=== PATIENT | female | born 1950 ===

== ENCOUNTER 2017-11-21 08:32 | Emergency (ER) | payer MEDICARE, MEDICAID ==
[2017-11-21 08:51] VITALS: BP 119/74; PULSE 80; RESP 18; TEMP 98.4; O2SAT 98
--- NOTE | 2017-11-21 11:30 | RAD ---
PROCEDURE: Radiographs of the Left Shoulder HISTORY: r/o fx COMPARISON: None available. FINDINGS: BONES: No acute displaced fracture. The distal clavicle and underlying ribs appear intact. JOINTS: No acute dislocation. SOFT TISSUES: Soft tissues appear unremarkable. No evidence of radiopaque foreign body. IMPRESSION: No acute displaced fracture or dislocation evident. If high clinical index of suspicion for occult fracture, suggest cross-sectional imaging, otherwise, if symptoms persist or if there is continued clinical concern, x-ray follow-up in 7-10 days should be considered.
--- NOTE | 2017-11-21 12:07 | C.PDOC ---
History Of Present Illness 67 y/o female presents to the ER complaining of left shoulder pain which began yesterday. Patient reports that the pain is localized to his shoulder. Patient states that he does a lot of heavy lifting.Patient denies fall, trauma, SOB, chest pain, and fever. Time Seen by Provider: 11/21/17 09:08 Chief Complaint (Nursing): Upper Extremity Problem/Injury History Per: Patient History/Exam Limitations: no limitations Onset/Duration Of Symptoms: Days Current Symptoms Are (Timing): Still Present Severity: Moderate Past Medical History Reviewed: Historical Data, Nursing Documentation, Vital Signs Vital Signs: Last Vital Signs Temp 98.4 F 11/21/17 08:44 Pulse 80 11/21/17 08:44 Resp 18 11/21/17 08:44 BP 119/74 11/21/17 08:44 Pulse Ox 98 11/21/17 12:13 - Medical History PMH: HTN, Hypercholesterolemia, Hyperlipidemia, Rheumatoid Arthritis Denies: Chronic Kidney Disease Other Surgeries: Hx of surgeries Family History: States: No Known Family Hx - Social History Hx Tobacco Use: No Hx Alcohol Use: No Hx Substance Use: No - Immunization History Hx Tetanus Toxoid Vaccination: No Hx Influenza Vaccination: No Hx Pneumococcal Vaccination: No Review Of Systems Except As Marked, All Systems Reviewed And Found Negative. Constitutional: Negative for: Fever, Chills Cardiovascular: Negative for: Chest Pain Respiratory: Negative for: Shortness of Breath Musculoskeletal: Positive for: Shoulder Pain (left shoulder pain) Physical Exam - Physical Exam Appears: Non-toxic, No Acute Distress Skin: Normal Color, Warm Head: Atraumatic, Normacephalic Eye(s): bilateral: Normal Inspection Nose: Normal Oral Mucosa: Moist Neck: Supple Chest: Symmetrical Cardiovascular: Rhythm Regular Respiratory: Normal Breath Sounds, No Accessory Muscle Use, No Rales, No Rhonchi , No Wheezing Extremity: Normal ROM, Tenderness (mild diffuse tenderness in left shoulder), Capillary Refill (< 2 seconds) Pulses: Left Brachial: Normal Neurological/Psych: Oriented x3, Normal Speech, Normal Motor, Normal Sensation ED Course And Treatment O2 Sat by Pulse Oximetry: 98 (RA) Pulse Ox Interpretation: Normal - Other Rad Shoulder X-Ray X-Ray: Viewed By Me, Read By Radiologist Interpretation: PROCEDURE: Radiographs of the Left Shoulder. HISTORY: r/o fx. COMPARISON: None available. FINDINGS: BONES: No acute displaced fracture. The distal clavicle and underlying ribs appear intact. JOINTS: No acute dislocation. SOFT TISSUES: Soft tissues appear unremarkable. No evidence of radiopaque foreign body. IMPRESSION: No acute displaced fracture or dislocation evident. If high clinical index of suspicion for occult fracture , suggest cross-sectional imaging, otherwise, if symptoms persist or if there is continued clinical concern, x-ray follow-up in 7-10 days should be considered. Progress Note: Patient given Motrin PO. X-Ray- Left shoulder was found to be negative. Patient discharged and told to follow up with PCP in 2-3 days. Disposition - Disposition Referrals: Hermelindo Wynn MD [Staff Provider] - Disposition: HOME/ ROUTINE Disposition Time: 10:30 Condition: GOOD Additional Instructions: Thank you for letting us take care of you today. The emergency medical care you received today was directed at your acute symptoms. If you were prescribed any medication, please fill it and take as directed. It may take several days for your symptoms to resolve. Return to the Emergency Department if your symptoms worsen, do not improve, or if you have any other problems. Please contact your doctor or call one of the physicians/clinics you have been referred to that are listed on the Patient Visit Information form that is included in your discharge packet. Bring any paperwork you were given at discharge with you along with any medications you are taking to your follow up visit. Our treatment cannot replace ongoing medical care by a primary care provider (PCP) outside of the emergency department. Thank you for allowing the [facility] team to be part of your care today. Follow up with your doctor in 2-3 days for re-evaluation and further management. Keith por dejarnos atenderlo hoy. La atencin mdica de emergencia que recibi hoy estaba dirigida a danuta sntomas agudos. Si le prescribieron algn medicamento, llnelo y tome segn las indicaciones. Danuta sntomas pueden tardar varios stone en resolverse. Regrese al Departamento de Emergencia si danuta s ntomas empeoran, no mejoran o si tiene algn otro problema. Comunquese con good[place] mdico o llame a yen de los mdicos / clnicas a los que calero sido referido que figura en el formulario de Informacin de visita del paciente que se incluye en goodrich paquete de shin. Traiga todos los documentos que recibi al momento del shin junto con los medicamentos que est tomando en goodrich visita de seguimiento. Nuestro tratamiento no puede reemplazar la atencin mdica en curso por parte de un proveedor de atencin primaria (PCP) fuera del departamento de emergencias. Keith por permitir que el equipo de [facility] sea parte de goodrich cuidado hoy. Alfred un seguimiento con goodrich mdico en 2-3 stone para ricky reevaluacin y ricky administracin posterior. Prescriptions: Ibuprofen [Motrin] 600 mg PO Q6 PRN #20 tab PRN Reason: Pain, Moderate (4-7) Instructions: Osteoarthritis Forms: Gen Discharge Inst Lao Print Language: UGANDAN - Clinical Impression Clinical Impression: Osteoarthritis - Scribe Statement The provider has reviewed the documentation as recorded by the Scribe Summjhony Enrique Provider Attestation: All medical record entries made by the Scribe were at my direction and personally dictated by me. I have reviewed the chart and agree that the record accurately reflects my personal performance of the history, physical exam, medical decision making, and the department course for this patient. I have also personally directed, reviewed, and agree with the discharge instructions and disposition.
== END 2017-11-21 10:54 | disposition home or self-care (01) ==
LOC: C.ER 08:32
DX: M19.90 Unspecified osteoarthritis, unspecified site (principal); E78.00 Pure hypercholesterolemia, unspecified; I10 Essential (primary) hypertension; M06.9 Rheumatoid arthritis, unspecified; E78.5 Hyperlipidemia, unspecified